=== PATIENT | male | born 1985 | race American Indian/Alaskan Native ===

== ENCOUNTER 2018-06-24 12:12 | Emergency (ER) | payer OTHER ==
[~2018-06-24] VITALS: Ht 188 cm; Wt 102.3 kg
[2018-06-24] MEDS ORDERED: KETOROLAC 30 MG/ML VIAL (J1885) IM ONE (12:45)
[2018-06-24] MEDS ORDERED: CYCL5TAB PO (12:51)
[2018-06-24] MEDS ORDERED: NAPR-50 PO (12:51)
[2018-06-24 13:57] VITALS: BP 119/62
== END 2018-06-24 14:37 | disposition home or self-care (01) ==
LOC: M ED 12:12
DX: S16.1XXA Strain of muscle, fascia and tendon at neck level, initial encounter (principal); W01.0XXA Fall on same level from slipping, tripping and stumbling without subsequent striking against object, initial encounter; Y92.098 Other place in other non-institutional residence as the place of occurrence of the external cause
CPT/HCPCS: 96372; 99283; J1885